=== PATIENT | female | born 1935 | race Caucasian/White ===

== ENCOUNTER 2021-12-17 06:48 | Emergency (ER) | payer MEDICARE, SELFPAY ==
[2021-12-17 06:49] VITALS: BP 176/79; PULSE 87; RESP 23; TEMP 36.8; O2SAT 92; BMI 33.5
[2021-12-17 07:00] LABS: Glucose Point of Care 89 mg/dL (70-110)
--- NOTE | 2021-12-17 07:00 | ED_ITS ---
HPI - General Adult General: Chief complaint: Altered Mental Status Stated complaint: ALOC Time Seen by Provider: 12/17/21 06:53 Source: patient Mode of arrival: EMS Limitations: altered mental status (Dementia) History of Present Illness: 86-year-old female brought in by EMS from local correction with complaint of difficult to arouse and altered mental status. She is awake alert. She denies any abdominal pain chest pain shortness of breath. She has no localizing symptoms or focal neurologic deficits. Her only notable complaint was saying she was cold. She denies any dysuria urgency or frequency her blood pressure is mildly elevated she is not able to tell me she took her medications this morning. EMS reports staff said she was difficult to arouse this morning but does have a history of underlying dementia. Onset (ago): minute(s) Relieving factors: none Exacerbating factors: none Associated symptoms: Reports confusion; Deny chest pain, cough, diaphoresis, decreased appetite, dyspnea, fevers/chills, headache(s), malaise, nausea, rash, palpitations, seizures, short of breath, syncope, vomiting or weakness Treatments prior to arrival: none Review of Systems General: Reports: Other (Review of systems somewhat suspect due to patient's dementia) Const: Denies: fever(s), chills, body aches, malaise or diaphoresis ENMT: Denies: throat pain, ear or mastoid pain, nasal discharge or nasal congestion Card: Denies: chest pain, palpitations or syncope Resp: Denies: dyspnea, productive cough or non-productive cough GI: Denies: abdominal pain, nausea or vomiting : Denies: flank pain, difficulty voiding, dysuria, urinary frequency or urinary urgency Musc: Denies: neck pain, back pain or extremity pain Skin/Breast: Denies: rash Neuro: Reports: confusion; Denies: headache(s) Physical Exam Const: COMMON NORMALS: no acute distress GENERAL APPEARANCE: cooperative ORIENTATION/CONSCIOUSNESS: Yes oriented to person, Yes oriented to place and Yes oriented to time HENMT: COMMON NORMALS: normocephalic, atraumatic and hearing grossly normal bilaterally HEAD & SCALP: normocephalic and atraumatic Neck/C-Spine: COMMON NORMALS: no JVD Resp: COMMON NORMALS: normal respiratory effort, No retractions, No use of accessory muscles and clear to auscultation bilaterally AUSCULTATION: clear to auscultation bilaterally Cardio: COMMON NORMALS: no JVD, regular rate, regular rhythm and No murmurs present (Cardio) RATE: regular rate RHYTHM: regular rhythm GI: COMMON NORMALS: Soft to palpation and No hepatosplenomegaly present AUSCULTATION: Yes normoactive bowel sounds PALPATION: Yes Soft to palpation, No Tenderness to palpation present (GI), No Guarding due to palpation present (GI) and Yes No hepatosplenomegaly present Extremity: COMMON NORMALS: normal to inspection, capillary refill normal, no clubbing, cyanosis or edema, no calf tenderness and no pedal edema Neuro: SENSORIUM/ORIENTATION: Yes oriented to person, Yes oriented to place and Yes oriented to time Skin: COMMON NORMALS: no rashes or lesions noted GENERAL SKIN EXAM: no rashes or lesions noted Course Vital Signs: Vital signs: Vital Signs Temperature 98.3 F 12/17/21 06:49 Pulse Rate 81 12/17/21 08:46 Respiratory Rate 16 12/17/21 08:46 Blood Pressure 169/61 12/17/21 08:46 Pulse Oximetry 93 12/17/21 08:46 MDM - General Adult Medical Decision Making CT of the head shows questionable area of calcification versus possible subarachnoid hemorrhage. Patient no trauma and she is completely recovered at this point there is no focal neurologic deficits no lethargy even. Daughter at the bedside one of the daughters actually works in a correction states she has flaccid this morning and then recovered. Suspect it may be related to medication or dementia at this point and will see anything that require hospitalization. I called and talked to Dr. Peterson who is her attending. We both agree there is no significant indication for admission at this point as far as the questionable area on the head CT since she has no symptoms there is no trauma at this time recommend that we go back to the correction and do a repeat head CT. Reevaluate if her status changes at all. Discussed with the family and they expressed understanding and agreement. Medical Records I reviewed the patient's medical records. Lab Data I reviewed the patient's lab results. : 12/17/21 07:16 12/17/21 07:16 Radiology Impressions Chest X-Ray 12/17/21 07:00 IMPRESSION: No acute cardiopulmonary abnormality. Head CT 12/17/21 07:00 IMPRESSION: 1. There is some punctate high-density material in the region of a left occipital sulcus. This may reflect some mineralization along the gyral surface, though a tiny amount of subarachnoid hemorrhage cannot be excluded. Short interval follow-up CT may be beneficial. 2. Patchy hypoattenuation in the periventricular and subcortical white matter, consistent with chronic small vessel ischemia. ADDENDUM: 12/17/21 0846 THIS REPORT CONTAINS FINDINGS THAT MAY BE CRITICAL TO PATIENT CARE. The findings were verbally communicated via telephone conference with MARKUS GOLDSTEIN at 8:46 AM CDT on 12/17/2021. The findings were acknowledged and understood. Laboratory Results WBC 8.1 10^3/uL (4.0-10.0) 12/17/21 07:16 RBC 4.63 10^6/uL (4.1-5.3) 12/17/21 07:16 Hgb 13.4 g/dL (11.5-15.3) 12/17/21 07:16 Hct 42.2 % (37.0-47.0) 12/17/21 07:16 MCV 91.1 fl (81-99) 12/17/21 07:16 MCH 28.9 pg (28.0-34.0) 12/17/21 07:16 MCHC 31.8 g/dL (30.0-36.0) 12/17/21 07:16 RDW 12.8 % (12.1-15.1) 12/17/21 07:16 Plt Count 270 10^3/cmm (130-400) 12/17/21 07:16 MPV 10.0 fL (7.4-10.4) 12/17/21 07:16 Neut % (Auto) 64.1 % 12/17/21 07:16 Lymph % (Auto) 22.5 % 12/17/21 07:16 [place] % (Auto) 8.6 % 12/17/21 07:16 Eos % (Auto) 3.8 % 12/17/21 07:16 Baso % (Auto) 0.6 % 12/17/21 07:16 Neut # (Auto) 5.22 10^3/uL (1.8-7.7) 12/17/21 07:16 Lymph # (Auto) 1.8 10^3/uL (0.8-4.8) 12/17/21 07:16 [place] # (Auto) 0.7 10^3/uL (0.2-0.9) 12/17/21 07:16 Eos # (Auto) 0.3 10^3/uL (0.0-0.8) 12/17/21 07:16 Baso # (Auto) 0.1 10^3/uL (0.0-0.1) 12/17/21 07:16 Nucleated RBC % (auto) 0 % 12/17/21 07:16 Nucleated RBCs # 0.0 /100WBC 12/17/21 07:16 Specimen Type Arterial 12/17/21 07:13 Sample Site Radial, left 12/17/21 07:13 ABG pH 7.43 (7.35-7.45) 12/17/21 07:13 ABG pCO2 36.0 mmHg (35-45) 12/17/21 07:13 ABG pO2 64.5 mmHg (80.0-100.0) L 12/17/21 07:13 ABG HCO3 23.7 mmol/L (22-26) 12/17/21 07:13 ABG O2 Saturation 94.1 12/17/21 07:13 ABG Base Excess -0.3 mmol/L (-2.0-2.0) 12/17/21 07:13 Osmin Test Pos 12/17/21 07:13 A-a O2 Gradient 5.0 mmHg (5-10) 12/17/21 07:13 Hematocrit 41.4 % (37-47) 12/17/21 07:13 Hgb O2 Saturation 92.3 % (95-100) L 12/17/21 07:13 Carboxyhemoglobin 0.8 %THgb (0.4-20.1) 12/17/21 07:13 Methemoglobin 1.1 % (0.4-1.5) 12/17/21 07:13 Total Hemoglobin 13.5 g/dL (12-16) 12/17/21 07:13 Sodium 141.0 mmol/L (131-143) 12/17/21 07:13 Potassium 4.2 mmol/L (3.5-5.0) 12/17/21 07:13 Glucose 97.0 mg/dL (70-115) 12/17/21 07:13 Ionized Calcium 1.2 mmol/L (1.1-1.4) 12/17/21 07:13 O2 Delivery Device Room air 12/17/21 07:13 FiO2 21.0 % 12/17/21 07:13 Development And Planning Engineer ID Cak 12/17/21 07:13 Sodium 139 mmol/L (136-145) 12/17/21 07:16 Potassium 4.3 mmol/L (3.5-5.1) 12/17/21 07:16 Chloride 104 mmol/L (98-107) 12/17/21 07:16 Carbon Dioxide 25 mmol/L (22-29) 12/17/21 07:16 Anion Gap 14.3 (5-19) 12/17/21 07:16 BUN 18 mg/dL (8-23) 12/17/21 07:16 Creatinine 0.9 mg/dL (0.5-0.9) 12/17/21 07:16 GFR Calculation Not Reportable 12/17/21 07:16 Glucose 99 mg/dL (65-115) 12/17/21 07:16 POC Glucose 89 mg/dL (70-110) 12/17/21 06:56 Calculated Osmolality 290 mOsm/kg (285-295) 12/17/21 07:16 Lactic Acid 2.3 mmol/L (0.5-2.2) H 12/17/21 07:16 Calcium 9.5 mg/dL (8.5-10.5) 12/17/21 07:16 Magnesium 2.3 mg/dL (1.7-2.3) 12/17/21 07:16 Total Bilirubin 0.3 mg/dL (0.15-1.2) 12/17/21 07:16 AST 14 U/L (0-32) 12/17/21 07:16 ALT 22 U/L (0-33) 12/17/21 07:16 Alkaline Phosphatase 110 IU/L (35-105) H 12/17/21 07:16 Creatine Kinase 77 U/L (26-192) 12/17/21 07:16 Troponin T Baseline 15 ng/L (0-10) H 12/17/21 07:16 Troponin T 120 Minute 15.00 ng/L (0-10) H 12/17/21 09:07 Delta Troponin T 0 ABS# (0-10) 12/17/21 09:07 Total Protein 6.6 g/dL (6.6-8.7) 12/17/21 07:16 Albumin 3.9 g/dL (3.5-5.2) 12/17/21 07:16 Globulin 2.7 g/dL (1.3-4.6) 12/17/21 07:16 Urine Color Yellow (Yellow) 12/17/21 08:00 Urine Appearance Clear (CLEAR) 12/17/21 08:00 Urine pH 6 (5-7) 12/17/21 08:00 Ur Specific [place] 1.020 (1.005-1.030) 12/17/21 08:00 Urine Protein Neg (Negative) 12/17/21 08:00 Urine Glucose (UA) Norm (Normal) 12/17/21 08:00 Urine Ketones Negative (Negative) 12/17/21 08:00 Urine Blood Neg (Negative) 12/17/21 08:00 Urine Nitrate Negative (Negative) 12/17/21 08:00 Urine Bilirubin Neg (Negative) 12/17/21 08:00 Urine Urobilinogen Norm mg/dL (Negative) 12/17/21 08:00 Ur Leukocyte Esterase Negative (Negative) 12/17/21 08:00 Discharge Plan Discharge Patient Disposition: Home Clinical Impression: Dementia Condition: Stable Discharge Orders: Discharge ED (Routine); Ordered 12/17/21 Ordered By: Markus Goldstein Discharge Diet: Usual diet Discharge Activity: Resume usual activity Patient Instructions: Opioid Safety Coding Level of Care Code ED Needle Valve Operator for Jared Fwd Exam Comprehensive
--- NOTE | 2021-12-17 07:00 | CTR_ITS ---
PROCEDURE INFORMATION: Exam: CT Head Without Contrast Exam date and time: 12/17/2021 7:26 AM Age: 86 years old Clinical indication: Altered mental status/memory loss TECHNIQUE: Imaging protocol: Computed tomography of the head without contrast. Radiation optimization: All CT scans at this facility use at least one of these dose optimization techniques: automated exposure control; mA and/or kV adjustment per patient size (includes targeted exams where dose is matched to clinical indication); or iterative reconstruction. COMPARISON: No relevant prior studies available. RADIATION DOSE METRICS: Total DLP (mGy-cm): 851.82 FINDINGS: Brain: There is some punctate high-density in the region of a left occipital sulcus on series 2, image 30. Patchy hypoattenuation in the periventricular and subcortical white matter, consistent with chronic small vessel ischemia. No CT evidence of acute ischemia. No mass effect. Cerebral ventricles: No ventriculomegaly. Paranasal sinuses: Visualized sinuses are unremarkable. No fluid levels. Mastoid air cells: Visualized mastoid air cells are well aerated. Orbital cavities: Bilateral lens extractions. Bones/joints: Unremarkable. No acute fracture. Soft tissues: Within normal limits. CT/CT head wo con* [id number] IMPRESSION: 1. There is some punctate high-density material in the region of a left occipital sulcus. This may reflect some mineralization along the gyral surface, though a tiny amount of subarachnoid hemorrhage cannot be excluded. Short interval follow-up CT may be beneficial. 2. Patchy hypoattenuation in the periventricular and subcortical white matter, consistent with chronic small vessel ischemia.
--- NOTE | 2021-12-17 07:00 | XRR_ITS ---
PROCEDURE INFORMATION: Exam: XR Chest Exam date and time: 12/17/2021 7:27 AM Age: 86 years old Clinical indication: Cough and dyspnea; Patient HX: 86-year-old female brought in by EMS from local half-way with complaint of difficult to arouse and altered mental status. ; Additional info: Dyspnea/cough TECHNIQUE: Imaging protocol: XR of the chest. Views: 1 view. COMPARISON: No relevant prior studies available. FINDINGS: Lungs: No focal airspace disease. Pleural spaces: Unremarkable. No pleural effusion. No pneumothorax. Heart/Mediastinum: Cardiomediastinal silhouette is within normal limits. Bones/joints: Unremarkable. XR/XR chest 1V portable [id number] IMPRESSION: No acute cardiopulmonary abnormality.
--- NOTE | 2021-12-17 07:01 | ECG_ITS ---
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 Measurements Intervals [place] Rate: 79 P: 60 UT: 182 QRS: 15 QRSD: 89 T: 39 QT: 394 QTc: 454 Interpretive Statements SINUS RHYTHM WITH FREQUENT SUPRAVENTRICULAR PREMATURE COMPLEXES ABNORMAL RHYTHM ECG No previous ECG available for comparison Electronically Signed On 12-17-2021 20:18:34 CDT by Sharlene Lopez M.D. [id number]
[2021-12-17 07:25] LABS: Basophils # 0.1 10^3/uL (0.0-0.1); Basophils % 0.6 %; Eosinophils # 0.3 10^3/uL (0.0-0.8); Eosinophils % 3.8 %; Hematocrit 42.2 % (37.0-47.0); Hemoglobin 13.4 g/dL (11.5-15.3); Lymphocytes # 1.8 10^3/uL (0.8-4.8); Lymphocytes % 22.5 %; Mean Corpuscular HGB Conc 31.8 g/dL (30.0-36.0); Mean Corpuscular Hemoglobin 28.9 pg (28.0-34.0); Mean Corpuscular Volume 91.1 fl (81-99); Monocytes # 0.7 10^3/uL (0.2-0.9); Monocytes % 8.6 %; Neutrophils # 5.22 10^3/uL (1.8-7.7); Neutrophils % 64.1 %; Nucleated Red Blood Cells % 0 %; Platelet Count 270 10^3/cmm (130-400); Red Blood Count 4.63 10^6/uL (4.1-5.3); Red Cell Distribution Width 12.8 % (12.1-15.1); White Blood Count 8.1 10^3/uL (4.0-10.0)
[2021-12-17 07:26] LABS: ABG PH Result 7.43 (7.35-7.45); Blood Gas Allen Test Pos; Blood Gas Operator Identificat CAK; Blood Gas Sample Site Radial, left; Blood Gas Sample Type Arterial; Carboxyhemoglobin 0.8 %THgb (0.4-20.1); Ionized Calcium Level - ABG 1.2 mmol/L (1.1-1.4); Oxygen Device ROOM AIR; Potassium Level - ABG 4.2 mmol/L (3.5-5.0)
[2021-12-17 07:27] LABS: Arterial Blood Gas Hematocrit 41.4 % (37-47); Base Excess ABG -0.3 mmol/L (-2.0-2.0); HCO3 ABG 23.7 mmol/L (22-26); HGB O2 Sat 92.3 % (95-100); Methemoglobin 1.1 % (0.4-1.5); Oxygen Saturation ABG 94.1; PO2 ABG 64.5 mmHg (80.0-100.0); Total Hemoglobin 13.5 g/dL (12-16)
--- NOTE | 2021-12-17 07:29 | PC.NURSE ---
Pt placed on continual cardiac, BP, and Spo2 monitoring upon arrival into room.
[2021-12-17 07:43] LABS: Alanine Aminotransferase 22 U/L (0-33); Albumin Level 3.9 g/dL (3.5-5.2); Alkaline Phosphatase 110 IU/L (35-105); Anion Gap 14.3 (5-19); Aspartate Amino Transferase 14 U/L (0-32); Blood Urea Nitrogen 18 mg/dL (8-23); Calcium 9.5 mg/dL (8.5-10.5); Carbon Dioxide 25 mmol/L (22-29); Chloride 104 mmol/L (98-107); Creatine Phosphokinase 77 U/L (26-192); Globulin 2.7 g/dL (1.3-4.6); Glucose 99 mg/dL (65-115); Magnesium 2.3 mg/dL (1.7-2.3); Osmolality Calculated 290 mOsm/kg (285-295); Potassium 4.3 mmol/L (3.5-5.1); Sodium 139 mmol/L (136-145); Total Bilirubin 0.3 mg/dL (0.15-1.2); Total Protein 6.6 g/dL (6.6-8.7)
[2021-12-17 07:44] LABS: Lactic Sepsis W/Reflex 2.3 mmol/L (0.5-2.2)
[2021-12-17 07:45] LABS: Troponin(5th) Baseline 15 ng/L (0-10)
[2021-12-17 08:07] LABS: Add Urine Microscopic? NO; Charge for UA Resulting for Rev
[2021-12-17 08:11] LABS: Bilirubin Urine Neg (Negative); Blood Urine Neg (Negative); Glucose Urine UA Norm (Normal); Ketones Urine Negative (Negative); Leukocyte Esterase Urine Negative (Negative); Nitrate Urine Negative (Negative); Protein Urine Neg (Negative); Urine Appearance Clear (CLEAR); Urine Color Yellow (Yellow); Urobilinogen Urine Norm (Negative); pH Urine 6 (5-7)
[2021-12-17 08:46] VITALS: BP 169/61; PULSE 81; RESP 16; O2SAT 93
--- NOTE | 2021-12-17 09:01 | ECG_ITS ---
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 Measurements Intervals [place] Rate: 83 P: 54 TX: 187 QRS: 14 QRSD: 84 T: 37 QT: 388 QTc: 456 Interpretive Statements SINUS RHYTHM WITH FREQUENT SUPRAVENTRICULAR PREMATURE COMPLEXES ABNORMAL RHYTHM ECG No previous ECG available for comparison Electronically Signed On 12-17-2021 20:24:55 CDT by Sharlene Lopez M.D. [id number]
[2021-12-17 09:12] LABS: Reflex Lactate Order REFLEX LACTIC ORDERD
[2021-12-17 09:33] LABS: Troponin 5 2HR Delta 0 ABS# (0-10)
[2021-12-17 10:26] VITALS: BP 187/95; PULSE 69; RESP 22; O2SAT 93
== END 2021-12-17 10:10 | disposition home or self-care (01) ==
PROVIDERS: Emergency Provider Family Medicine
DX: F03.90 Unspecified dementia, unspecified severity, without behavioral disturbance, psychotic disturbance, mood disturbance, and anxiety (principal)
CPT/HCPCS: 36416; 36600; 70450; 71045; 80051; 80053; 81003; 82330; 82550; 82805; 82962; 83605; 83735; 84484; 85025; 93005; 99285

== ENCOUNTER 2022-01-05 14:25 | Outpatient (CLI) | payer MEDICARE, OTHER, SELFPAY ==
--- NOTE | 2022-01-05 14:37 | CT_ITS ---
WS: [id number] CT HEAD TECHNIQUE: Noncontrast CT of the head obtained from the skullbase to the vertex. CLINICAL INFORMATION: [facility] COMPARISON: December 17, 2021 DLP: 1021.[address] scans at [facility] use at least one of these dose optimization techniques: automated e xposure control; mA and/or kV adjustment per patient size (includes targeted exams where dose is matc hed to clinical indication); or iterative reconstruction. FINDINGS: No evidence of intracranial hemorrhage or mass effect. Ventricular system and basal cisterns are adames nt. Moderate small vessel changes with moderate parenchymal volume loss. Cavernous carotid calcification. No extra-axial fluid collections. No evidence of mass or mass effect . Previously described area of punctate increased attenuation the LEFT occipital sulcus is unchanged likely mineralization. Paranasal sinuses and mastoid air cells are well aerated. .Normal visualized soft tissues. CT/CT head wo con* [id number] IMPRESSION: 1. No evidence of intracranial hemorrhage or mass effect. 2. Previously described area of punctate increased attenuation LEFT occipital sulcus is unchanged likely mineralization. 3. Moderate small vessel changes with moderate parenchymal volume loss. 4. Cavernous carotid calcification. 5. No acute intracranial findings and no significant changes compared to previ ous.
== END 2022-01-05 14:26 | disposition home or self-care (01) ==
LOC: RAD 14:30
PROVIDERS: Visit Provider Nurse Practitioner Family
DX: G30.9 Alzheimer's disease, unspecified (principal)
CPT/HCPCS: 70450